=== PATIENT | male | born 1965 | race Caucasian/White ===

== ENCOUNTER 2017-04-18 16:19 | Emergency (ER) | payer BC, OTHER ==
[2017-04-18] MEDS ORDERED: CEPHALEXIN 500 MG CAPSULE PO STA (16:39)
--- NOTE | 2017-04-18 17:07 | Emergency Department Record ---
History of Present Illness - General Chief Complaint: Laceration(s) Stated Complaint: LACERATION ON LT HAND Time Seen by Provider: 04/18/17 16:34 Source: Patient Mode of Arrival: Ambulatory Limitations: No limitations - History of Present Illness Initial Commments: The patient cut his L hand with a knife about a half hour ago. His Td is UTD. He denies any numbness, tingling or weakness. Onset/Timin -: Minutes(s) Place: Home Context: Accidental Treatments Prior to Arrival: Bandage - Related Data Hx Tetanus Toxoid Vaccination: Yes Year of Tetanus Vaccination: 2014 Patient Tetanus UTD (within 5 yrs): Yes Previous Rx's Medication Instructions Recorded Cephalexin [Keflex] 500 mg PO QID #20 cap 04/18/17 Allergies Allergy/AdvReac Type Severity Reaction Status Date / Time No Known Drug Allergies Allergy Verified 04/18/17 16:22 Travel Screening - Travel/Exposure Within Last 30 Days Have you traveled within the last 30 days?: Yes Location Detail:: [facility], [place], [place] - Travel/Exposure Within Last Year Have you traveled outside the [place] in the last year?: Yes Location Detail:: [place], [place], [place] - Additonal Travel Details Have you been exposed to anyone with a communicable illness?: No - Travel Symptoms Symptom Screening: None Past Medical History - SOCIAL HISTORY Smoking Status: Light tobacco smoker (<10/day) Alcohol Use: Occasional Drug Use: None - RESPIRATORY Hx Respiratory Disorders: No - CARDIOVASCULAR Hx Cardio Disorders: No - NEURO Hx Neuro Disorders: No - GI Hx GI Disorders: No - Hx Genitourinary Disorders: No - ENDOCRINE Hx Endocrine Disorders: No - MUSCULOSKELETAL Hx Musculoskeletal Disorders: No - PSYCH Hx Psych Problems: No - HEMATOLOGY/ONCOLOGY Hx Hematology/Oncology Disorders: No Family Medical History Any Significant Family History?: No Physical Exam - General General Appearance: Alert, Cooperative, No acute distress - Extremities Extremities exam: Full ROM, Tenderness (around the lacerations.). negative: Normal inspection (There is a very superficial 8 mm lac to the dorsal L mid thumb and a 1 cm lac to the proximal L 2nd finger radial side. The thumb and 2nd finger are NVI distally with normal tendon function.) Image of Hand: 1 - superficial 8mm lac. 2 - 1cm deeper lac. Course Vital Signs 04/18/17 16:23 Temperature 97.7 F Pulse Rate 101 H Respiratory 20 Rate Blood Pressure 157/97 Pulse Ox 94 L - Reevaluation(s) Reevaluation #1: Procedure note: The L hand and thumb lacs were cleansed with betadine and anesth. with 1.5 cc's Lido 1%. The wounds were explored and no tendon injury was seen. The lacs were closed with a total of 4 4.0 sutures. There were no complications. 04/18/17 17:09 Medical Decision Making - Data Complexity MDM Data: X-Ray Ordered and/or Reviewed - Radiology Data Radiology results: Report reviewed (L hand: Neg.) Disposition Disposition: Discharge Clinical Impression: Laceration of hand Qualifiers: Encounter type: initial encounter Foreign body presence: without foreign body Laterality: left Qualified Code(s): S61.412A - Laceration without foreign body of left hand, initial encounter Disposition: Home, Self-Care Condition: (1) Good Instructions: Laceration (ED) Additional Instructions: Keep dry for 2 days then no soaking or swimming. Take Motrin or Tylenol for pain and use the Keflex as directed. Please have the sutures removed in 10 days. Return to the ER for any problems or signs of infection. Prescriptions: Cephalexin [Keflex] 500 mg PO QID #20 cap Forms: Patient Portal Access Time of Disposition: 17:20 Quality - Quality Measures Quality Measures: N/A - Blood Pressure Screening View Details: Yes Does Patient Have Any of the Following: No Blood Pressure Classification: Hypertensive Reading Systolic Measurement: 157 Diastolic Measurement: 97 Screening for High Blood Pressure: < Pre-Hypertensive BP, F/U Documented > [ G8950] Pre-Hypertensive Follow-up Interventions: Referral to alternative/primary care provider.
--- NOTE | 2017-04-19 07:59 | RADIOLOGY REPORT ---
EXAM: LEFT HAND HISTORY: LACERATION. TECHNIQUE: Three views of the left hand were obtained. Comparison: None. Encounter: Initial. FINDINGS: Negative for fracture or dislocation. No radiopaque foreign body. Soft tissue injury between the first and second digits. IMPRESSION: NO ACUTE OSSEOUS ABNORMALITY. SOFT TISSUE INJURY, ABOVE. JOB NUMBER: [id number] MTDD
== END 2017-04-18 17:29 | disposition home or self-care (01) ==
LOC: ER 16:19
DX: S61.012A Laceration without foreign body of left thumb without damage to nail, initial encounter (principal); S61.211A Laceration without foreign body of left index finger without damage to nail, initial encounter; W26.0XXA Contact with knife, initial encounter; Y92.009 Unspecified place in unspecified non-institutional (private) residence as the place of occurrence of the external cause
CPT/HCPCS: 12001; 99283; 99284

== ENCOUNTER 2017-04-28 18:06 | Emergency (ER) | payer OTHER ==
--- NOTE | 2017-04-28 18:20 | Emergency Department Record ---
History of Present Illness - General Stated Complaint: SUTURE REMOVAL Time Seen by Provider: 04/28/17 18:15 Source: Patient Mode of arrival: Ambulatory Limitations: No limitations - History of Present Illness Initial Comments: 51 yo male presents to ED for suture removal to the left hand that were placed 10 days ago. Patient reports that the laceration was sustained using a hunting knife while cleaning a deer. Patient denies redness, swelling, or increased pain at the suture site, reports that the wound has healed very well. MD Complaint: Suture/staple removal Onset/Timin -: Days(s) Returns Today for: Staple/stitch removal Symptoms Since Prior Visit: No new symptoms Associated Symptoms: None - Related Data Previous Rx's Medication Instructions Recorded Cephalexin [Keflex] 500 mg PO QID #20 cap 04/18/17 Allergies Allergy/AdvReac Type Severity Reaction Status Date / Time No Known Drug Allergies Allergy Verified 04/18/17 16:22 Review of Systems Constitutional: Denies: Chills, Fever, Malaise, Night sweats Eyes: Denies: Eye discharge, Eye pain ENT: Denies: Congestion, Epistaxis Respiratory: Denies: Cough, Dyspnea Cardiovascular: Denies: Chest pain, Dyspnea on exertion Endocrine: Denies: Fatigue, Heat or cold intolerance Gastrointestinal: Denies: Vomiting Genitourinary: Denies: Incontinence, Retention Musculoskeletal: Denies: Arthralgia, Back pain Skin: Denies: Bruising, Change in color Neurological: Denies: Confusion, Headache Psychiatric: Denies: Anxiety Hematological/Lymphatic: Denies: Anemia, Blood Clots Past Medical History - SOCIAL HISTORY Smoking Status: Light tobacco smoker (<10/day) Drug Use: None - RESPIRATORY Hx Respiratory Disorders: No - CARDIOVASCULAR Hx Cardio Disorders: No - NEURO Hx Neuro Disorders: No - GI Hx GI Disorders: No - Hx Genitourinary Disorders: No - ENDOCRINE Hx Endocrine Disorders: No - MUSCULOSKELETAL Hx Musculoskeletal Disorders: No - PSYCH Hx Psych Problems: No - HEMATOLOGY/ONCOLOGY Hx Hematology/Oncology Disorders: No Physical Exam - General General Appearance: Alert, Oriented x3, Cooperative, No acute distress Limitations: No limitations - Head Head exam: Atraumatic, Normocephalic, Normal inspection Head exam detail: negative: Abrasion, Contusion, Lafleur's sign, General tenderness, Hematoma, Laceration - Eye Eye exam: Normal appearance. negative: Conjunctival injection, Periorbital swelling, Periorbital tenderness, Scleral icterus - ENT Ear exam: negative: Auricular hematoma, Auricular trauma Nasal Exam: negative: Active bleeding, Discharge, Dried blood, Foreign body Mouth exam: negative: Drooling, Laceration, Muffled voice, Tongue elevation - Neck Neck exam: Normal inspection. negative: Meningismus, Tenderness - Respiratory Respiratory exam: Normal lung sounds bilaterally. negative: Respiratory distress, Rhonchi, Stridor, Wheezes - Cardiovascular Cardiovascular Exam: Regular rate, Normal rhythm, Normal heart sounds - GI/Abdominal GI/Abdominal exam: Soft. negative: Rebound, Rigid, Tenderness - Rectal Rectal exam: Deferred - exam: Deferred - Extremities Extremities exam: Other (well healed laceration involving the left thumb and left index finger). negative: Calf tenderness, Pedal edema, Tenderness - Back Back exam: Denies: CVA tenderness (R), CVA tenderness (L) - Neurological Neurological exam: Alert, Normal gait, Oriented X3 - Psychiatric Psychiatric exam: Normal affect, Normal mood. negative: Anxious - Skin Skin exam: Normal color. negative: Abrasion Type of lesion: negative: abrasion Course - Reevaluation(s) Reevaluation #1: 04/28/17 18:24 Procedure Note: Sutures were removed from the lateral aspect of the left index finger (3) without complications, (1) suture was removed from the left thumb dorsally without incident. Patient tolerated the procedure well. Disposition Disposition: Discharge Clinical Impression: Visit for suture removal Disposition: Home, Self-Care Condition: (2) Stable Instructions: Stitches Removal (ED) Additional Instructions: Return to ED if your symptoms worsen or if you have any concerns. Follow-up with your family doctor as needed. Forms: Patient Portal Access Time of Disposition: 18:20 Quality - Quality Measures Quality Measures: N/A - Blood Pressure Screening Does Patient Have Any of the Following: No Blood Pressure Classification: Pre-Hypertensive BP Reading Systolic Measurement: 125 Diastolic Measurement: 76 Screening for High Blood Pressure: < Pre-Hypertensive BP, F/U Documented > [ G8950] Pre-Hypertensive Follow-up Interventions: Follow-up with rescreen every year.
== END 2017-04-28 18:35 | disposition home or self-care (01) ==
LOC: ER 18:06
DX: Z48.02 Encounter for removal of sutures (principal)

== ENCOUNTER 2017-11-28 09:52 | Day surgery (SDC) | payer OTHER ==
[~2017-11-28 09:52] MED LIST: ACETAMINOPHEN 1,000 MG/100 ML BTL IV ONE
[2017-11-28] MEDS ORDERED: FENTANYL PF 100MCG/2ML VIAL IV ONE (09:53)
[2017-11-28] MEDS ORDERED: BUPIVACAINE LIPOSOME/PF 133MG/10ML VIAL IV ONE (09:53)
[2017-11-28] MEDS ORDERED: MIDAZOLAM HCL 2MG/2ML VIAL IV ONE (09:53)
[2017-11-28] MEDS ORDERED: ONDANSETRON HCL IV 4 MG/2 ML VIAL IVP ONE (09:53)
[2017-11-28] MEDS ORDERED: LIDOCAINE 1% MDV (10MG/ML) 20ML VIAL SQ ONE (09:53)
[2017-11-28] MEDS ORDERED: SEVOFLURANE 250 ML INH ONE (09:53)
[2017-11-28] MEDS ORDERED: HYDROMORPHONE HCL 2 MG/ML VIAL IV ONE ×2 (09:53)
[2017-11-28] MEDS ORDERED: PROPOFOL 10 MG/ML VIAL IV ONE (09:53)
[2017-11-28] MEDS ORDERED: BUPIVACAINE 0.5% (5MG/ML) PF 30ML VIAL IVP ONE (09:53)
[2017-11-28] MEDS ORDERED: GLYCOPYRROLATE 0.2 MG/ML ML IV ONE (09:53)
[2017-11-28] MEDS ORDERED: DEXAMETHASONE 4 MG/ML 1ML VIAL IVP ONE (09:53)
--- NOTE | 2017-11-29 12:50 | Operative Note ---
DATE OF SURGERY: 11/28/2017 Surgeon: Lebron Francis DO PREOPERATIVE DIAGNOSES: 1. Tear of the left rotator cuff. 2. Impingement syndrome, left shoulder. 3. Chondromalacia, left shoulder. POSTOPERATIVE DIAGNOSES: 1. Tear of the left rotator cuff. 2. Impingement syndrome, left shoulder. 3. Partial tear of anterior glenoid labrum. 4. Chondromalacia of the glenohumeral joint, left shoulder. 5. Calcific tendonitis of the left supraspinatus. OPERATION: 1. Arthroscopic repair of the left rotator cuff. 2. Arthroscopic subacromial decompression and acromioplasty of the left shoulder. 3. Arthroscopic debridements of the anterior glenoid labrum. 4. Arthroscopic debridement of the supraspinatus. DESCRIPTION OF PROCEDURE: This 52-year-old male was taken to the operating room and placed in the supine position on the operating room table where general anesthesia was induced. He was placed in the beach chair position with all bony prominences well padded and head well secured. The left shoulder was prepped with Hibiclens and draped in the usual sterile fashion. A posterior portal was established in the glenohumeral joint and initial evaluation of the joint demonstrated normal appearance of the biceps tendon and there was very minimal chondromalacia of the humeral head. Another area of grade 2 change was noted at the 9-o'clock position on the glenoid. This area was approximately 6-7 mm right at the edge of the articular cartilage but not unstable and not further disturbed. An anterior portal was established. Probing of the structures confirmed these findings. He did have some fraying of the anterior labrum, and this was debrided with the rotating shaver. Inspection of the biceps also did not reveal any pathology. The subscapularis was evaluated from the articular surface, and a longitudinal slit in the tendon was seen extending down to the tuberosity, and this was approximately 0.75 cm posterior to the biceps tendon. We placed a needle and subsequently a suture through the needle in this area to nathalia it. Therefore, the scope was removed and placed in the subacromial space and thorough subacromial decompression and acromioplasty was performed. Palpation of this area with a probe where the suture went through the rotator cuff demonstrated hard areas of the tendon and some tearing to the bursal surface was identified. This was debrided with the rotating shaver as well as the ArthroCare wand and subsequently we identified a rather large area of calcific tendonitis with a hard mass of calcium deposits posterior to the area where we had marked with a suture. This was then thoroughly debrided and we debrided the tuberosity to healthy appearing bone. We felt that this U-shaped tear would be able to be repaired utilizing the Arthrex speed bridge technique. Therefore, we placed 2 SwiveLock anchors at the margin of the articular cartilage, one anteriorly and one posteriorly. One with a FiberTape and the second with a TigerTape. Sutures were then shuttled through the rotator cuff and a single limb of each one of these sutures was then grasped and placed through a third SwiveLock anchor which was placed inferior to the anterior anchor. Traction placed on the sutures and then the anchor impaled. Subsequently, the 2 remaining tails of suture were placed through a 4th SwiveLock anchor which was placed inferior to the posterior anchor. Once the position had been assured, the anchor was impaled and the sutures were cut and the placement seemed to be satisfactory. The wound was irrigated and suctioned. The wounds were closed with interrupted 4-0 nylon suture. Sterile dressings were applied with an UltraSling and the patient taken to the recovery room in satisfactory condition. GROSS PATHOLOGY: This patient demonstrated a tear of the anterior glenoid labrum with mild chondromalacia of the humeral head and glenoid as described above. There was evidence of a longitudinal tear on the articular surface and a degenerative-type tear on the bursal surface with a large area of calcific tendonitis of the supraspinatus, and this was thoroughly debrided to remove as much of this as we possibly could. The tear was repaired back to the tuberosity to its anatomic footprint. CC: MD KELBY Hernandez
== END 2017-11-28 14:00 | disposition home or self-care (01) ==
LOC: SUR 09:52
PROVIDERS: ATTEND Orthopaedic Surgery
DX: M75.102 Unspecified rotator cuff tear or rupture of left shoulder, not specified as traumatic (principal); M75.42 Impingement syndrome of left shoulder; S43.431A Superior glenoid labrum lesion of right shoulder, initial encounter; M94.212 Chondromalacia, left shoulder; M75.32 Calcific tendinitis of left shoulder
CPT/HCPCS: C9290; J2405